=== PATIENT | female | born 1950 ===

== ENCOUNTER 2025-10-21 19:04 | Inpatient (IN) | payer MEDICARE ==
[~2025-10-21] VITALS: Ht 172.7 cm; Wt 95.3 kg
[2025-10-21] MEDS ORDERED: NICO1PAT35 TP (19:25)
[2025-10-21] MEDS ORDERED: FURO20TA4 PO (19:25)
[2025-10-21] MEDS ORDERED: SERT50TA PO (19:25)
[2025-10-21] MEDS ORDERED: HYDR-4209 PO (19:25)
[2025-10-21] MEDS ORDERED: ZOLP5TAB18 PO (19:25)
[2025-10-21] MEDS ORDERED: METF-494 PO (19:25)
[2025-10-21] MEDS ORDERED: LISI10TA29 PO (19:25)
[2025-10-21] MEDS ORDERED: LEVE-21 PO (19:25)
[2025-10-21] MEDS ORDERED: PANT40TA49 PO (19:25)
[2025-10-21] MEDS ORDERED: SENN8.6T19 PO (19:25)
[2025-10-21] MEDS ORDERED: FLUT16SP16 BNOSTRILS (19:25)
[2025-10-21] MEDS ORDERED: ESCI20TA44 PO (19:25)
[2025-10-21] MEDS ORDERED: BUDE10.2 INH (19:25)
[2025-10-21] MEDS ORDERED: MULT-1045 PO (19:25)
[2025-10-21] MEDS ORDERED: GABA300T25 PO (19:25)
[2025-10-21] MEDS ORDERED: ATOR40TA PO (19:25)
[2025-10-21] MEDS ORDERED: DOCU100C36 PO (19:25)
[2025-10-21] MEDS ORDERED: [UNRECOGNIZED DRUG - CODE] PO (19:25)
[2025-10-21] MEDS ORDERED: APIX5TAB PO (19:25)
[2025-10-21] MEDS ORDERED: TICA90TA PO (19:25)
[2025-10-21] MEDS ORDERED: DIPH25TA25 PO (19:25)
[2025-10-21] MEDS ORDERED: LORA-259 PO (19:25)
[2025-10-21] MEDS ORDERED: DEXT15LI PO (19:25)
[2025-10-21] MEDS ORDERED: MELA5TAB20 PO (19:25)
[2025-10-21] MEDS ORDERED: RISP-32 PO (19:25)
[2025-10-21 20:36] VITALS: BP 125/60
[2025-10-21] MEDS ORDERED: MAG HYDROX/AL HYDROX/SIMETH 30 ML LIQUID UDC PO PRN (21:15)
[2025-10-21] MEDS ORDERED: MAGNESIUM HYDROXIDE 30 ML LIQUID UDC PO PRN (21:15)
[2025-10-21] MEDS: BLOOD SUGAR DIAGNOSTIC 1 EACH STRIP VI ONE (21:15)
[2025-10-21 22:43] VITALS: BP 124/51; TEMP 97.7; O2SAT 97
[2025-10-22] MEDS: TEMAZEPAM 7.5 MG CAPSULE PO PRN ×2 (00:38→21:57)
[2025-10-22] MEDS: ACETAMINOPHEN 325 MG TABLET PO PRN (00:39)
[2025-10-22] MEDS: LORAZEPAM 1 MG TABLET PO PRN (04:39)
[2025-10-22 08:12] VITALS: BP 124/51; TEMP 97.7; O2SAT 97
[2025-10-22] MEDS: NICOTINE 7 MG/24HR PATCH TD SCH (09:00)
[2025-10-22] MEDS: DIVALPROEX 125 MG TABLET.DR PO SCH (10:31)
[2025-10-22] MEDS: APIXABAN 5 MG TABLET PO SCH (12:43)
[2025-10-22] MEDS ORDERED: Medication Not On Formulary EA (Gabapentin (Gralise) 1 TAB) PO SCH (13:00)
[2025-10-22] MEDS ORDERED: TICAGRELOR 90 MG TABLET PO SCH (13:31)
[2025-10-22] MEDS: GABAPENTIN 300 MG CAPSULE PO SCH (13:35)
[2025-10-22] MEDS ORDERED: FLUT50BL INH (14:11)
[2025-10-22] MEDS ORDERED: MISCELLANEOUS MED IM SCH (14:15)
[2025-10-22] MEDS ORDERED: ASPI81TA31 PO (14:49)
[2025-10-22] MEDS ORDERED: DONE5TAB34 PO (14:50)
[2025-10-22] MEDS ORDERED: [UNRECOGNIZED DRUG - CODE] PO (15:05)
[2025-10-22] MEDS ORDERED: LEVE500T20 PO (15:06)
[2025-10-22] MEDS ORDERED: LORA10CA PO (15:08)
[2025-10-22] MEDS ORDERED: METF-440 PO (15:09)
[2025-10-22] MEDS ORDERED: PREG75CA PO (15:10)
[2025-10-22] MEDS ORDERED: SPIR25TA6 PO (15:10)
[2025-10-22] MEDS ORDERED: CHOL2000 PO (15:11)
[2025-10-22] MEDS ORDERED: ACET-3752 PO (15:12)
[2025-10-22] MEDS ORDERED: ALBU18HF2 INH (15:13)
[2025-10-22] MEDS ORDERED: METH-806 PO (15:14)
[2025-10-22] MEDS ORDERED: DOCU100T2 PO (15:15)
[2025-10-22] MEDS: TICAGRELOR 90 MG TABLET PO SCH (15:43)
[2025-10-22 16:09] VITALS: BP 124/51; TEMP 97.7; O2SAT 97
[2025-10-22] MEDS: DOCUSATE SODIUM 100 MG CAPSULE PO SCH (16:52)
[2025-10-22] MEDS: SENNOSIDES 1 TABLET PO SCH (16:52)
[2025-10-22] MEDS: GLUCERNA SHAKE 237 ML CAN PO SCH (16:52)
[2025-10-22] MEDS ORDERED: FLUTICASONE PROP NASAL SPRAY 16 GM BOTTLE NS SCH (17:00)
[2025-10-22 18:44] VITALS: BP 125/64; O2SAT 95
[2025-10-22 20:00] VITALS: BP 152/82; TEMP 97.8; O2SAT 95
[2025-10-22] MEDS: MOMETASONE/FORMOTEROL 8.8 GM HFA.AER.AD IH SCH (20:37)
[2025-10-22] MEDS: ATORVASTATIN 40 MG TABLET PO SCH (20:37)
[2025-10-23] MEDS: PANTOPRAZOLE SODIUM 40 MG TABLET.DR PO SCH (06:21)
[2025-10-23 07:58] LABS: PLATELET COUNT (AUTO) 167 K/uL (179-408); RED BLOOD CELL COUNT(AUTO) 4.20 MIL/uL (3.63-4.92); RED CELL DISTRIBUTION WIDTH 16.2 % (12.3-17.7); WHITE BLOOD COUNT (AUTO) 4.4 K/uL (3.8-11.8)
[2025-10-23 08:14] LABS: CREATININE 0.7 mg/dL (0.6-1.3); SODIUM SERUM 139 mmol/L (136-145); UREA NITROGEN, BLOOD 9 mg/dL (7-18)
[2025-10-23] MEDS: MULTIVITAMINS,THERAPEUTIC TABLET PO SCH (08:27)
[2025-10-23] MEDS: LORATADINE 10 MG TABLET PO SCH (08:27)
[2025-10-23] MEDS: METFORMIN XR 500 MG TAB.SR.24H PO SCH (08:28)
[2025-10-23] MEDS: LISINOPRIL 10 MG TABLET PO SCH (08:28)
[2025-10-23] MEDS: NICOTINE 21 MG/24HR PATCH TD SCH (08:29)
[2025-10-23] MEDS: FUROSEMIDE 20 MG TABLET PO SCH (08:29)
[2025-10-23 08:33] VITALS: BP 116/59; TEMP 98; O2SAT 97
[2025-10-23] MEDS ORDERED: NICOTINE 21 MG/24HR PATCH TD SCH (09:00)
[2025-10-23 14:03] LABS: *BLOOD, URINE NEGATIVE (NEGATIVE); *CLARITY,URINE CLEAR (CLEAR); *COLOR,URINE YELLOW (YELLOW); *KETONES,URINE TRACE (NEGATIVE); *PROTEIN,URINE 1+ (NEGATIVE); *UROBILINOGEN,URINE 1.0 E.U./dl (NORMAL); LEUKOCYTE ESTERASE ,URINE 1+ (NEGATIVE); NITRITE, URINE NEGATIVE (NEGATIVE); UGLUCOSE TRACE (NEGATIVE)
[2025-10-23 14:08] LABS: *BILIRUBIN,URIN 1+ (NEGATIVE)
[2025-10-23 14:12] LABS: SQUAMOUS EPITHELIAL CELL,UR FEW /HPF (NONE SEEN)
[2025-10-23 16:52] VITALS: BP 96/48; TEMP 98; O2SAT 97
[2025-10-23] MEDS: HYDROCODONE/APAP 5-325MG TABLET PO PRN (18:01)
[2025-10-23 20:00] VITALS: BP 84/46; TEMP 98.1; O2SAT 95
[2025-10-23 21:32] VITALS: BP 79/52; O2SAT 98
[2025-10-23 22:47] VITALS: BP 96/48
[2025-10-23] MEDS: LORAZEPAM 0.5 MG TABLET PO PRN (22:49)
[2025-10-24 06:04] VITALS: BP 99/52
[2025-10-24 09:40] VITALS: BP 93/52; TEMP 98.2; O2SAT 98
[2025-10-24 16:11] VITALS: BP 127/52; TEMP 97.5; O2SAT 100
[2025-10-24] MEDS: DIVALPROEX 125 MG TABLET.DR PO ONE (17:13)
[2025-10-24 19:51] VITALS: BP 109/60; TEMP 97.8; O2SAT 100
[2025-10-25 07:55] VITALS: BP 105/52; TEMP 98.2; O2SAT 98
[2025-10-25] MEDS: DIVALPROEX 250 MG TABLET.DR PO SCH (09:01)
[2025-10-25] MEDS: TRAMADOL HCL 50 MG TABLET PO PRN (17:43)
[2025-10-25 20:00] VITALS: BP 113/71; TEMP 98; O2SAT 99
[2025-10-26 07:38] VITALS: BP 124/61; TEMP 98.2; O2SAT 99
[2025-10-26 15:10] VITALS: BP 122/61; TEMP 99; O2SAT 98
[2025-10-26 20:00] VITALS: BP 112/66; TEMP 98.2; O2SAT 99
[2025-10-27 08:22] VITALS: BP 103/63; TEMP 98; O2SAT 98
[2025-10-27] MEDS: DIVALPROEX 500 MG TABLET.DR PO SCH (11:18)
[2025-10-27 15:40] VITALS: BP 124/53; TEMP 98.2; O2SAT 98
[2025-10-27 21:04] VITALS: BP 111/61; TEMP 98.4; O2SAT 98
[2025-10-28 08:18] VITALS: BP 104/75; TEMP 98; O2SAT 98
[2025-10-28] MEDS: MEDIHONEY= THERAHONEY 1.5 OZ TUBE TOP SCH (08:26)
[2025-10-28 16:17] VITALS: BP 105/60; TEMP 98.2; O2SAT 98
[2025-10-28 20:04] VITALS: BP 98/60; TEMP 98.1; O2SAT 98
[2025-10-29 08:19] VITALS: BP 118/72; TEMP 98; O2SAT 98
[2025-10-29 08:26] LABS: VALPROIC ACID 50 ug/mL (50-100)
[2025-10-29 16:22] VITALS: BP 114/67; TEMP 98.2; O2SAT 98
[2025-10-29 20:00] VITALS: BP 112/67; TEMP 98.3; O2SAT 98
[2025-10-30 07:51] VITALS: BP 94/62; TEMP 98; O2SAT 99
[2025-10-30 15:22] VITALS: BP 110/58; TEMP 98; O2SAT 99
[2025-10-30 19:59] VITALS: BP 110/53; TEMP 98.2; O2SAT 95
[2025-10-31 08:23] VITALS: BP 104/64; TEMP 98; O2SAT 98
== END 2025-10-31 12:00 | DRG 885 ==
LOC: ER 19:17 → GPS 20:41
PROVIDERS: ADMIT Psychiatry & Neurology Psychosomatic Medicine; ATTEND Internal Medicine
DX: F25.9 Schizoaffective disorder, unspecified (principal); I11.0 Hypertensive heart disease with heart failure; G93.41 Metabolic encephalopathy; F03.911 Unspecified dementia, unspecified severity, with agitation; L97.221 Non-pressure chronic ulcer of left calf limited to breakdown of skin; F03.92 Unspecified dementia, unspecified severity, with psychotic disturbance; I48.91 Unspecified atrial fibrillation; G40.909 Epilepsy, unspecified, not intractable, without status epilepticus; N39.0 Urinary tract infection, site not specified; Z79.01 Long term (current) use of anticoagulants; Z79.02 Long term (current) use of antithrombotics/antiplatelets; J44.9 Chronic obstructive pulmonary disease, unspecified; E11.40 Type 2 diabetes mellitus with diabetic neuropathy, unspecified; E66.9 Obesity, unspecified; F31.9 Bipolar disorder, unspecified; S81.812A Laceration without foreign body, left lower leg, initial encounter; E78.5 Hyperlipidemia, unspecified; I25.10 Atherosclerotic heart disease of native coronary artery without angina pectoris; I50.9 Heart failure, unspecified; Z79.899 Other long term (current) drug therapy; Z79.84 Long term (current) use of oral hypoglycemic drugs; V00.148A Other scooter (nonmotorized) accident, initial encounter; Y92.89 Other specified places as the place of occurrence of the external cause; Z86.73 Personal history of transient ischemic attack (TIA), and cerebral infarction without residual deficits; Z79.51 Long term (current) use of inhaled steroids; Z71.3 Dietary counseling and surveillance; Z68.31 Body mass index [BMI] 31.0-31.9, adult
CPT/HCPCS: 36415; 73590; 80164; 83735; 84100; 85025; 87086; A6209; J3490